=== PATIENT | male | born 1975 | race Caucasian/White ===

== ENCOUNTER 2018-03-18 09:34 | Emergency (ER) | payer SELFPAY ==
[2018-03-18] MEDS ORDERED: IBUPROFEN 800 MG TAB PO ONE (10:06)
[2018-03-18] MEDS ORDERED: ACETAMINOPHEN 500 MG TAB PO ONE (10:06)
--- NOTE | 2018-03-18 10:08 | EDPHY ---
H & P Stated Complaint: flu like symptoms fever/cough chest hurts/body aches Time Seen by Provider: 03/18/18 09:59 HPI/ROS: CHIEF COMPLAINT: Flu-like symptoms x2 days HISTORY OF PRESENT ILLNESS: 43-year-old immunocompetent male, no influenza vaccination, arrives via private vehicle complaining of nonproductive cough, flu -like symptoms for the past 48 hr, dyspnea. Complaining of myalgias. No nuchal rigidity No headache. No back pain. No gait instability. No muscular flaccidity. REVIEW OF SYSTEMS: 10 systems reviewed and negative with the exception of the elements mentioned in the history of present illness PAST MEDICAL & SURGICAL HISTORY: No pertinent medical or surgical history SOCIAL HISTORY: Nonsmoker PHYSICAL EXAM (Prior to examination, patient consented to physical exam, hands were washed and my usual and customary physical exam procedures followed) 1) GENERAL: Well-developed, well-nourished, alert and oriented. Appears nontoxic. 2) HEAD: Normocephalic, atraumatic 3) HEENT: Pupils equal, round, reactive to light bilaterally. Sclera anicteric. Nasopharynx, oropharynx, clear, no lesions. Moist Mucous membranes. No tonsillar enlargement or exudate Ears bilaterally with normal tympanic membranes. No evidence of otitis media otitis externa 4) NECK: Full range of motion, no meningeal signs. 5) LUNGS: Left lower lobe rales noted. No retractions. 6) HEART: Regular rate and rhythm, no murmur, no heave, no gallop. 7) ABDOMEN: No guarding, no rebound, no focal tenderness, negative McBurney's, negative Mcallister's, negative Rovsing's, negative peritoneal sign, 8) MUSCULOSKELETAL: Moving all extremities, no focal areas of tenderness, no obvious trauma. No peripheral edema or discoloration. 9) BACK: No CVA tenderness, no midline vertebral tenderness, no fluctuance, no step-off, no obvious trauma, no visual or palpable abnormality. 10) SKIN: No rash, no petechiae. 11) Psychiatric: Patient is oriented X 3, there is no agitation. DIFFERENTIAL DIAGNOSIS: In no particular order including but not limited to bronchitis, pneumonia, influenza - Personal History Current Tetanus Diphtheria and Acellular Pertussis (TDAP): Yes - Medical/Surgical History Hx Asthma: No Hx Chronic Respiratory Disease: No Hx Diabetes: No Hx Cardiac Disease: No Hx Renal Disease: No Hx Cirrhosis: No Hx Alcoholism: No Hx HIV/AIDS: No Hx Splenectomy or Spleen Trauma: No Other PMH: bronchitis - Social History Smoking Status: Former smoker Constitutional: Initial Vital Signs Temperature (C) 38.2 C 03/18/18 09:39 Heart Rate 91 03/18/18 09:39 Respiratory Rate 18 03/18/18 09:39 Blood Pressure 130/87 H 03/18/18 09:39 O2 Sat (%) 94 03/18/18 09:39 O2 Delivery Mode Room Air Allergies/Adverse Reactions: No Known Allergies Allergy (Unverified 03/18/18 09:38) Home Medications: Medication Instructions Recorded [place] 03/18/18 Oseltamivir Phosphate [Tamiflu] 75 mg PO BIDMEAL 5 Days cap 03/18/18 Medical Decision Making - Diagnostics Imaging Results: Imaging Impressions Chest X-Ray 03/18/18 10:01 Impression: Very mild perihilar bronchitis, with no convincing evidence of a focal infiltrate. ED Course/Re-evaluation: 11:30 a.m.: Re-evaluation. Discussed his diagnostic results. He is maintaining normal saturations, breathing comfortably feeling improvement after Tylenol and Motrin. Will initiate antiviral therapy with Tamiflu. Recommend avoiding work and other close proximity the locations. Given my usual customary respiratory precautions instructions. He feels comfortable being discharged. Care of patient under supervision of secondary supervising physician Dr Lalitha Solis with whom I discussed case. - Data Points Laboratory Results: 03/18/18 10:05 Nasal Influenza A PCR FLU A DETECTED H (NEGATIVE) Nasal Influenza B PCR NEGATIVE FOR FLU B (NEGATIVE) Medications Given: Discontinued Medications Acetaminophen (Tylenol) 1,000 mg PO EDNOW ONE Stop: 03/18/18 10:07 Last Admin: 03/18/18 10:19 Dose: 1,000 mg Ibuprofen (Motrin) 800 mg PO EDNOW ONE Stop: 03/18/18 10:07 Last Admin: 03/18/18 10:19 Dose: 800 mg Departure - Departure Disposition: Home, Routine, Self-Care Clinical Impression: Influenza A Condition: Good Instructions: Influenza (ED) Additional Instructions: Return to the emergency department immediately for change in breathing habits, change in voice, change in swallowing habits, change in mental status, or any other symptoms that concern you. Infeccin de las vas respiratorias superiores Regrese a la jessica de emergencia de inmediato si siente fiebre/escalofros, dificultad para respirar, dolor abdominal, incapacidad de tolerar la ingestin oral u otros sntomas que le preocupan. Referrals: [facility],. [Clinic] - 2-3 days, call for appt. Stand Alone Forms: Work Excuse Prescriptions: Oseltamivir Phosphate [Tamiflu] 75 mg PO BIDMEAL 5 Days cap
[2018-03-18 10:24] VITALS: BP 133/84
== END 2018-03-18 12:04 | disposition home or self-care (01) ==
DX: J09.X2 Influenza due to identified novel influenza A virus with other respiratory manifestations (principal); D84.9 Immunodeficiency, unspecified; Z87.891 Personal history of nicotine dependence